=== PATIENT | female | born 1970 ===

== ENCOUNTER 2022-11-08 14:02 | Outpatient (CLI) | payer OTHER, SELFPAY ==
--- NOTE | ~2022-11-08 | MR_ITS ---
EXAMINATION: MR abdomen wo/w con, MR pelvis wo/w con DATE: 11/08/2022 15:23 INDICATION: Abdominal pain TECHNIQUE: 1. Magnetic resonance imaging (MRI) of the abdomen was performed without and with 13 mL Multihance in travenous contrast. Multi planar sequences include T1-weighted, T2-weighted, diffusion-weighted, dual -echo and pre and postcontrast LAVA sequences. 2. MRI of the pelvis was performed without and with the same 13 mL bolus of MultiHance intravenous co ntrast. Multi planar sequences include T1-weighted, T2-weighted, diffusion-weighted, dual-echo and pr e and postcontrast LAVA sequences of the pelvis as well as small [id number] axial, sagittal and co van T2-weighted FSE sequences of the central pelvis. COMPARISON: None. FINDINGS: Abdomen: Heart size is normal. No pericardial or pleural effusion. Small sliding-type hiatal hernia. Liver, ga llbladder, spleen, pancreas, bilateral adrenal glands and right kidney are normal. There are 3 small nonenhancing T2 hyperintense left renal cysts, the largest measuring 7 mm at the lower pole. No bowel obstruction. No pathologically enlarged abdominal lymphadenopathy. Mild lumbar levocurvature with mi ld lower lumbar spondylosis. Bone marrow signal is normal throughout. Pelvis: There several diverticula scattered along the sigmoid colon without adjacent inflammatory stranding t o suggest diverticulitis. Normal appendix. Bladder is normal. Bilateral ovaries are unremarkable. 4 m m mildly T2 hyperintense lesion in the posterior fundus of the uterus likely representing a small fib roid. No free fluid in the pelvis. No pathologically enlarged pelvic or inguinal lymphadenopathy. Bon e marrow signal is normal. IMPRESSION: 1. Mild sigmoid diverticulosis without adjacent inflammatory change to suggest diverticulitis. No acu te intra-abdominal/pelvic process. Reviewed, dictated and finalized at location B. [employer] IMPRESSION: 1. Mild sigmoid diverticulosis without adjacent inflammatory change to suggest diverticulitis. No acute intra-abdominal/pelvic process.
== END 2022-11-08 14:03 ==
PROVIDERS: PCP Internal Medicine; Visit Provider Internal Medicine
DX: K57.30 Diverticulosis of large intestine without perforation or abscess without bleeding (principal)
CPT/HCPCS: 72197; 74183; A9577